=== PATIENT | female | born 2005 | race Caucasian/White ===

== ENCOUNTER 2023-01-17 21:49 | Emergency (ER) | payer BC ==
[~2023-01-17] VITALS: Ht 172.7 cm; Wt 64.5 kg
[2023-01-17 22:02] VITALS: TEMP 97.4
[2023-01-17] MEDS ORDERED: AMOXICILLIN 8751 TAB PO (23:57)
[2023-01-18 00:10] VITALS: BP 118/79; PULSE 86
== END 2023-01-18 00:10 | disposition home or self-care (01) ==
LOC: COL.ER 21:49
DX: S91.312A Laceration without foreign body, left foot, initial encounter (principal); Z28.310 Unvaccinated for COVID-19; W26.8XXA Contact with other sharp object(s), not elsewhere classified, initial encounter; Y92.838 Other recreation area as the place of occurrence of the external cause; Y93.11 Activity, swimming

== ENCOUNTER 2023-01-28 18:01 | Emergency (ER) | payer BC ==
[~2023-01-28] VITALS: Ht 172.7 cm; Wt 61.4 kg
[~2023-01-28 18:01] MED LIST: AMOXICILLIN 8751 TAB PO
[2023-01-28 18:10] VITALS: TEMP 99.1
[2023-01-28 19:12] VITALS: BP 116/70; PULSE 67
== END 2023-01-28 19:43 | disposition home or self-care (01) ==
LOC: COL.ER 18:01
DX: S91.312D Laceration without foreign body, left foot, subsequent encounter (principal); Z28.310 Unvaccinated for COVID-19; W45.8XXD Other foreign body or object entering through skin, subsequent encounter